=== PATIENT | female | born 1990 | race Caucasian/White ===

== ENCOUNTER 2016-10-06 15:01 | Emergency (ER) | payer OTHER ==
[~2016-10-06] VITALS: Ht 160 cm; Wt 63.5 kg
[2016-10-06 15:27] VITALS: BP 121/60
[2016-10-06 15:38] LABS: BASO % 0 % (0-3); EOS % 0 % (0-3); HEMATOCRIT 37.2 % (36.0-47.0); HEMOGLOBIN 12.4 g/dL (12.0-15.5); LYMPH # 1.9 x10^3/uL (1.0-4.8); LYMPH % 17 % (24-48); MEAN CORPUSCULAR HEMOGLOBIN 31 pg (25-35); MEAN CORPUSCULAR HGB CONC 33 g/dL (31-37); MEAN CORPUSCULAR VOLUME 93 fL (79-100); MONO % 7 % (0-9); NEUT % 75 % (31-73); PLATELET COUNT 306 x10^3/uL (140-400); RED CELL DISTRIBUTION WIDTH 13.2 % (11.5-14.5); WHITE BLOOD COUNT 11.2 x10^3/uL (4.0-11.0)
[2016-10-06 15:41] LABS: BILIRUBIN,URINE NEGATIVE (NEG); GLUCOSE,URINE NEGATIVE (NEG); NITRITE,URINE NEGATIVE (NEG); PH,URINE 7.5; PROTEIN,URINE NEGATIVE (NEG-TRACE); UROBILINOGEN,URINE 0.2 mg/dL (0.2 mg/dL)
--- NOTE | 2016-10-06 15:45 | PHYS DOC ---
Adult General Chief Complaint Chief Complaint: VAGINAL BLEEDING HPI HPI Patient is a 26 year old female who presents with complaint of vaginal bleeding. Patient states that her symptoms started yesterday. Patient states that she had had continued spotting since last night. Patient states that she recently found out that she was after she missed her last period. Patient is approximately 6 weeks EGA. Patient states that she has had intermittent mild cramping but is not in any significant pain at this time. Patient denies any other associated symptoms. Patient denies any significant past medical history. Patient is not currently under care at this time but she has set up an appointment in the next couple weeks with an CLINICAL OUTCOMES MANAGER through [facility]. Review of Systems Review of Systems Constitutional: Denies fever or chills [] Eyes: Denies change in visual acuity, redness, or eye pain [] HENT: Denies nasal congestion or sore throat [] Respiratory: Denies cough or shortness of breath [] Cardiovascular: No additional information not addressed in HPI [] GI: Denies abdominal pain, nausea, vomiting, bloody stools or diarrhea [] : Vaginal bleeding, denies dysuria or hematuria [] Musculoskeletal: Denies back pain or joint pain [] Integument: Denies rash or skin lesions [] Neurologic: Denies headache, focal weakness or sensory changes [] Current Medications Current Medications Current Medications Medications (Trade) Dose Ordered Sig/Esmer Start Time Stop Time Status Last Admin Dose Admin Metronidazole (Flagyl) 500 mg 1X ONCE 10/06/16 16:45 10/06/16 16:48 DC Sodium Chloride (Iv Sodium Chloride 0.9% 1000ml Bag) 1,000 ml @ 1,000 mls/hr Q1H 10/06/16 16:00 10/06/16 16:59 10/06/16 16:00 1,000 MLS/HR Allergies Allergies Allergies Coded Allergies Type Severity Reaction Last Updated Verified No Known Drug Allergies 10/06/16 No Physical Exam Physical Exam Constitutional: Well developed, well nourished, no acute distress, non-toxic appearance. [] HENT: Normocephalic, atraumatic, bilateral external ears normal, oropharynx moist, no oral exudates, nose normal. [] Eyes: PERRLA, EOMI, conjunctiva normal, no discharge. [] Neck: Normal range of motion, no tenderness, supple, no stridor. [] Cardiovascular:Heart rate regular rhythm, no murmur [] Lungs & Thorax: Bilateral breath sounds clear to auscultation [] Abdomen: Bowel sounds normal, soft, no tenderness, no masses, no pulsatile masses. [] Pelvic: Normal external exam, no active bleeding from cervical os, no cervical motion tenderness, no midline or bilateral adnexal tenderness on bimanual exam, Skin: Warm, dry, no erythema, no rash. [] Back: No tenderness, no CVA tenderness. [] Extremities: No tenderness, no cyanosis, no clubbing, ROM intact, no edema. [] Neurologic: Alert and oriented X 3, normal motor function, normal sensory function, no focal deficits noted. [] Current Patient Data Vital Signs Vital Signs Date Time Temp Pulse Resp B/P Pulse Ox O2 Delivery O2 Flow Rate FiO2 10/06/16 15:27 98.3 86 14 121/60 99 Room Air 98.3 Lab Values Laboratory Tests Test 10/06/16 15:20 10/06/16 15:29 White Blood Count 11.2x10^3/uL (4.0-11.0) H Red Blood Count 4.00x10^6/uL (3.50-5.40) Hemoglobin 12.4g/dL (12.0-15.5) Hematocrit 37.2% (36.0-47.0) Mean Corpuscular Volume 93fL (79-100) Mean Corpuscular Hemoglobin 31pg (25-35) Mean Corpuscular Hemoglobin Concent 33g/dL (31-37) Red Cell Distribution Width 13.2% (11.5-14.5) Platelet Count 306x10^3/uL (140-400) Neutrophils (%) (Auto) 75% (31-73) H Lymphocytes (%) (Auto) 17% (24-48) L Monocytes (%) (Auto) 7% (0-9) Eosinophils (%) (Auto) 0% (0-3) Basophils (%) (Auto) 0% (0-3) Neutrophils # (Auto) 8.5x10^3uL (1.8-7.7) H Lymphocytes # (Auto) 1.9x10^3/uL (1.0-4.8) Monocytes # (Auto) 0.8x10^3/uL (0.0-1.1) Eosinophils # (Auto) 0.0x10^3/uL (0.0-0.7) Basophils # (Auto) 0.0x10^3/uL (0.0-0.2) Urine Color Yellow Urine Clarity Cloudy Urine pH 7.5 Urine Specific [place] 1.010 Urine Protein Negativemg/dL (NEG-TRACE) Urine Glucose (UA) Negativemg/dL (NEG) Urine Ketones (Stick) Negativemg/dL (NEG) Urine Blood Negative (NEG) Urine Nitrite Negative (NEG) Urine Bilirubin Negative (NEG) Urine Urobilinogen Dipstick 0.2mg/dL (0.2 mg/dL) Urine Leukocyte Esterase Negative (NEG) Urine RBC 0/HPF (0-2) Urine WBC Occ/HPF (0-4) Urine Squamous Epithelial Cells Occ/LPF Urine Amorphous Sediment Present/HPF Urine Bacteria Few/HPF (0-FEW) Urine Hyaline Casts Occasional/HPF Urine Mucus Slight/LPF Maternal Serum HCG Beta Subunit 23261qUF/mL (0-6) H Sodium Level 141mmol/L (136-145) Potassium Level 3.9mmol/L (3.5-5.1) Chloride Level 104mmol/L (98-107) Carbon Dioxide Level 28mmol/L (21-32) Anion Gap 9 (6-14) Blood Urea Nitrogen 9mg/dL (7-20) Creatinine 0.8mg/dL (0.6-1.0) Estimated GFR (Cockcroft-Gault) 88.1 Glucose Level 91mg/dL (70-99) Calcium Level 9.1mg/dL (8.5-10.1) Magnesium Level 1.8mg/dL (1.8-2.4) POC Urine HCG, Qualitative Hcg positive (Negative) Laboratory Tests 10/06/16 15:20 Laboratory Tests 10/06/16 15:20 Microbiology 10/06/16 Wet Prep - Final, Complete EKG EKG Not performed [] Radiology/Procedures Radiology/Procedures [facility] [address] [place], [place] [id number] IMAGING REPORT Signed PATIENT: MARCUS GOFF ACCOUNT: [id number] : 1990 LOCATION: ER AGE: 26 SEX: F EXAM STATUS: REG ER ORD. PHYSICIAN: ABRAHAM BISWAS MD REASON: vaginal bleeding, approximately 6 weeks EGA PROCEDURE: OB <14 WKS W/TV OB ultrasound less than 14 weeks to include transabdominal and transvaginal imaging 10/06/2016 Clinical history: First trimester with vaginal spotting. Technique: Using the distended urinary bladder as a sonographic window, a real-time ultrasound examination of the pelvis was performed. Additionally in an attempt to better evaluate the uterus and adnexa, a transvaginal ultrasound study was performed. Multiple images were obtained. Findings: A gestational sac is seen within the endometrial canal within the fundus/body of the uterus. Within this gestational sac an embryonic pole is seen. The CRL of the embryonic pole measures 1.51 cm. This corresponds to an estimated gestational age by ultrasound of 7 weeks 6 days plus or minus a standard deviation of 7 days. Embryonic cardiac activity is seen within the heart rate of 182 bpm. The uterus is otherwise within normal limits. Both ovaries are within normal limits in size and echogenicity. The right ovary measures 2.7 x 1.8 x 2.5 cm in size. The left ovary measures 2.4 x 1.4 x 1.3 cm in size. No adnexal mass is seen. A very small amount of free fluid is seen within the pelvis. Impression: Single living IUP with an estimated gestational age by ultrasound of 7 weeks 6 days plus or minus a standard deviation of 7 days. The estimated date of delivery by ultrasound is 05/19/2017. DICTATED and SIGNED BY: KARLY COOK MD DATE: 10/06/16 1627 CC: ABRAHAM BISWAS MD; UNKNOWN PCP NAME ~ [] Course & Med Decision Making Course & Med Decision Making Pertinent Labs and Imaging studies reviewed. (See chart for details) The patient's exam was found to be normal. The patient was found to have evidence of bacterial vaginosis and started on Flagyl therapy in the emergency department. Ultrasound shows normal intrauterine . Patient's blood type was O-. I consult to Dr. Hodges of CLINICAL OUTCOMES MANAGER. He stated due to recently revised guidelines that patient's under 10 weeks gestational age did not require treatment with Rhogam for Rh- status and did not recommend that we give this patient Rhogam. Patient will continue on seven-day course of Flagyl for treatment of bacterial vaginosis. Advised follow-up with patient's CLINICAL OUTCOMES MANAGER as scheduled in one week and return to the emergency department for any worsening symptoms. Patient voiced understanding and in agreement with treatment plan. Dragon Disclaimer Dragon Disclaimer This electronic medical record was generated, in whole or in part, using a voice recognition dictation system. Departure Departure Impression: Primary Impression: First trimester bleeding Additional Impression: Bacterial vaginosis Disposition: HOME, SELF-CARE Condition: IMPROVED Patient Instructions: Bacterial Vaginosis, Vaginal Bleeding During , First Trimester Additional Instructions: Follow-up with your CLINICAL OUTCOMES MANAGER in one week as scheduled. You were found to be Rh-, however you were not given RhoGAM after consult with our CLINICAL OUTCOMES MANAGER Dr. Hodges at your visit today as your is under 10 weeks and does not require treatment. Finish antibiotics as prescribed and return to the emergency department for any worsening symptoms. Scripts Metronidazole (Flagyl)500 Mg Tablet1 Tab PO BID #14 TAB Prov:ABRAHAM BISWAS MD 10/06/16 Problem Qualifiers ABRAHAM BISWAS MD Oct 06, 2016 15:45
[2016-10-06] MEDS: IV NORMAL SALINE 1000ML BAG 1,000 ML IV SCH (16:00)
[2016-10-06 16:05] LABS: CALCIUM 9.1 mg/dL (8.5-10.1); CREATININE 0.8 mg/dL (0.6-1.0); GFR 88.1; MAGNESIUM 1.8 mg/dL (1.8-2.4); POTASSIUM 3.9 mmol/L (3.5-5.1)
[2016-10-06 16:13] LABS: BACTERIA,URINE FEW /HPF (0-FEW); RBC,URINE 0 /HPF (0-2); SQUAMOUS EPITHELIAL CELL,UR OCC /LPF; WBC,URINE OCC /HPF (0-4)
--- NOTE | 2016-10-06 16:35 | RAD ---
OB ultrasound less than 14 weeks to include transabdominal and transvaginal imaging 10/06/2016 Clinical history: First trimester with vaginal spotting. Technique: Using the distended urinary bladder as a sonographic window, a real-time ultrasound examination of the pelvis was performed. Additionally in an attempt to better evaluate the uterus and adnexa, a transvaginal ultrasound study was performed. Multiple images were obtained. Findings: A gestational sac is seen within the endometrial canal within the fundus/body of the uterus. Within this gestational sac an embryonic pole is seen. The CRL of the embryonic pole measures 1.51 cm. This corresponds to an estimated gestational age by ultrasound of 7 weeks 6 days plus or minus a standard deviation of 7 days. Embryonic cardiac activity is seen within the heart rate of 182 bpm. The uterus is otherwise within normal limits. Both ovaries are within normal limits in size and echogenicity. The right ovary measures 2.7 x 1.8 x 2.5 cm in size. The left ovary measures 2.4 x 1.4 x 1.3 cm in size. No adnexal mass is seen. A very small amount of free fluid is seen within the pelvis. Impression: Single living IUP with an estimated gestational age by ultrasound of 7 weeks 6 days plus or minus a standard deviation of 7 days. The estimated date of delivery by ultrasound is 05/19/2017.
[2016-10-06] MEDS: METRONIDAZOLE 500 MG TABLET. PO ONE (16:45)
[2016-10-06] MEDS ORDERED: METR500T PO (17:02)
== END 2016-10-06 17:41 | disposition home or self-care (01) ==
LOC: ER 15:01
DX: O23.591 Infection of other part of genital tract in pregnancy, first trimester (principal); N76.0 Acute vaginitis; Z3A.01 Less than 8 weeks gestation of pregnancy
CPT/HCPCS: 36415; 76801; 76817; 80048; 81001; 81025; 83735; 84702; 85027; 86850; 86900; 86901; 87491; 87591; 96360; 99285; J7030; Q0111